=== PATIENT | male | born 1955 | race Hispanic/Latino ===

== ENCOUNTER 2024-05-30 18:57 | Emergency (ER) | payer OTHER ==
[2024-05-30 19:24] VITALS: BP 126/66
[2024-05-30 19:30] VITALS: BP 116/63
[2024-05-30] MEDS ORDERED: PHENAZOPYRIDINE HCL 100 MG/TAB PO ONE (19:40)
[2024-05-30] MEDS ORDERED: TAMSULOSIN HCL 0.4 MG CAP PO ONE (19:40)
[2024-05-30 19:45] VITALS: BP 117/65
[2024-05-30 19:49] LABS: URINE BILIRUBIN - DIPSTICK Negative (NEGATIVE); URINE BLOOD DIPSTICK Negative (NEGATIVE); URINE COLOR Yellow; URINE GLUCOSE - DIPSTICK Negative (NEGATIVE); URINE KETONE Negative (NEGATIVE); URINE LEUK ESTERASE Negative (NEGATIVE); URINE NITRITE - DIPSTICK Negative (Negative); URINE PH 5.5 (4.5-8.0); URINE PROTEIN - DIPSTICK Negative (NEG-TRACE); URINE SPECIFIC GRAVITY <=1.005; URINE UROBILINOGEN - DIPSTICK 0.2 E.U./dL (0.2)
[2024-05-30] MEDS ORDERED: PYRIDIUM200 MG PO (20:48)
[2024-05-30] MEDS ORDERED: TAMSULOSIN0.4 MG PO (20:48)
[2024-05-30 20:59] VITALS: BP 117/65
== END 2024-05-30 21:05 | disposition home or self-care (01) | DRG 696 ==
LOC: ED 18:57
PROVIDERS: Emergency Medicine
DX: R33.9 Retention of urine, unspecified (principal)